=== PATIENT | female | born 1965 | race Caucasian/White ===

== ENCOUNTER 2017-05-31 09:01 | Day surgery (SDC) | payer BC ==
[~2017-05-31] VITALS: Ht 152.4 cm; Wt 64.7 kg
[2017-05-31] VITALS (8 sets, daily range): BP systolic 115–134; BP diastolic 62–83; PULSE 62–82; RESP 12–18; Ht 152.4 cm; Wt 64.7 kg
[~2017-05-31 09:01] MED LIST: EPHEDrine SULFATE 50 MG/5 ML SYG ONE; GLYCOPYRROLATE 0.4 MG INJ ONE
[2017-05-31 10:56] LABS: BASOPHILS % 0.6 % (0.0-2.0); EOSINOPHILS # 0.1 10^3/ul (0.0-0.5); EOSINOPHILS % 1.7 % (0.0-7.0); HEMATOCRIT 39.5 % (37.0-47.0); HEMOGLOBIN 13.6 g/dl (12.0-16.0); LYMPHOCYTES # 1.8 10^3/ul (0.8-2.9); LYMPHOCYTES % 34.3 % (15.0-51.0); MEAN CORPUSCULAR HEMOGLOBIN 29.5 pg (29.0-33.0); MEAN CORPUSCULAR HGB CONC 34.4 g/dl (32.0-37.0); MEAN CORPUSCULAR VOLUME 85.7 fl (82.0-101.0); MEAN PLATELET VOLUME 11.1 fl (7.4-10.4); MONOCYTE # 0.3 10^3/ul (0.3-0.9); MONOCYTES % 5.7 % (0.0-11.0); NEUTROPHILS % 57.3 % (39.0-77.0); PLATELET COUNT 193 10^3/UL (140-415); RED BLOOD COUNT 4.61 10^6/ul (4.20-5.40); RED CELL DISTRIBUTION WIDTH 12.2 % (11.5-14.5); WHITE BLOOD COUNT 5.3 10^3/ul (4.8-10.8)
[2017-05-31] MEDS ORDERED: MIDAZOLAM 1 MG/ML 2 ML INJ ONE (13:11)
[2017-05-31] MEDS ORDERED: LIDOCAINE 2% (SDV) 5 ML INJ ONE (13:28)
[2017-05-31] MEDS ORDERED: FENTAnyl 50 MCG/ML VIAL ONE (13:28)
[2017-05-31] MEDS ORDERED: PROPOFOL 20 ML ONE (13:28)
[2017-05-31] MEDS ORDERED: DEXAMETHASONE 4 MG/ML 1 ML INJ ONE (13:30)
[2017-05-31] MEDS ORDERED: ONDANSETRON 4 MG INJ ONE (13:32)
[2017-05-31] MEDS ORDERED: FAMOTIDINE 20 MG INJ ONE (13:32)
--- NOTE | 2017-05-31 14:14 | PREOPHP ---
DATE OF ADMISSION: 05/31/2017 HISTORY OF PRESENT ILLNESS: A 52-year-old female 3, para 3, is admitted due to postmenopaus al bleeding. PAST MEDICAL HISTORY: Unremarkable. PAST SURGICAL HISTORY: section x3, umbilical hernia repair and right shoulder surgery. ALLERGIES: LATEX. FAMILY HISTORY: Noncontributory. PHYSICAL EXAMINATION: VITAL SIGNS: The patient is afebrile. Vital signs stable. HEAD, NECK AND CHEST: Within normal limits. ABDOMEN: Soft, nontender, nondistended. PELVIC: Normal. EXTREMITIES: Within normal limits. NEUROLOGIC: Within normal limits. IMPRESSION: Postmenopausal bleeding. PLAN: Dilation and curettage. Risks, benefits and alternatives of the procedure were explained to the patient. The patient said she understood and gave informed consent for the procedure. Dictated By: SANJEEV ALVAREZ/YUNIOR Conf#: [id number] DID#: [id number]
--- NOTE | 2017-05-31 14:22 | SIPON ---
Date/Time of Note Date/Time of Note DATE: 05/31/17 TIME: 14:21 Operative Report Preoperative Diagnosis postmenopausal bleeding Postoperative Diagnosis Same Operation/Procedure Performed Dilation and Curettage Surgeon Sanjeev Cheng MD retail event and sales assistant None Anesthesia: general Estimated blood loss: minimal Transfusion Required none Specimen ECC and EMC Grafts/Implants none Complications none SANJEEV CHENG MD May 31, 2017 14:22
[2017-05-31] MEDS ORDERED: KETOROLAC 30 MG INJ IV PRN (14:30)
[2017-05-31] MEDS ORDERED: hydrALAzine 20 MG INJ IV PRN (14:30)
[2017-05-31] MEDS ORDERED: FENTAnyl 50 MCG/ML VIAL IV ONE (14:30)
[2017-05-31] MEDS ORDERED: EPHEDrine SULFATE 50 MG/5 ML SYG IV PRN (14:30)
[2017-05-31] MEDS ORDERED: METOCLOPRAMIDE 10 MG INJ IV PRN (14:30)
[2017-05-31] MEDS ORDERED: FENTAnyl 50 MCG/ML VIAL IV PRN ×2 (14:30)
[2017-05-31] MEDS ORDERED: ONDANSETRON 4 MG INJ IV PRN (14:30)
[2017-05-31] MEDS ORDERED: OXYCODONE/ACETAMINOPHEN (5/325) TAB PO PRN ×2 (14:30)
[2017-05-31] MEDS ORDERED: TRIMETHOBENZAMIDE 100 MG/ML VIAL IM PRN (14:30)
--- NOTE | 2017-05-31 15:54 | OPR ---
DATE OF OPERATION: 05/31/2017 PREOPERATIVE DIAGNOSIS: Postmenopausal bleeding. POSTOPERATIVE DIAGNOSIS: Postmenopausal bleeding. OPERATION PERFORMED: Dilation and curettage. SURGEON: Dr. Melgoza. ANESTHESIA: General anesthesia. PROCEDURE: The patient was taken to the operating room and placed on the operating table in supine position. After adequate general anesthesia was given, the patient was placed in dorsal lithotomy p osition. The area was prepared and draped in the usual sterile fashion. Speculum was placed inside the vagina and tenaculum was used to grasp the anterior lip of the cervix. Using Kevorkian curet, endocervical curettage was performed and specimen obtained was sent to pathology. Next, using cervi hernandez dilators, the cervical os was dilated. Using sharp curet, endometrial curettage was performed a nd specimen obtained was sent to Pathology. All the instruments were removed. Adequate hemostasis was assured. Patient tolerated the procedure well. Patient was awakened from anesthesia and transf erred to recovery in stable condition. ESTIMATED BLOOD LOSS: Minimal. COUNTS: All counts were correct. Dictated By: SANJEEV ALVAREZ/YUNIOR Conf#: [id number] DID#: [id number]
== END 2017-05-31 16:20 | disposition home or self-care (01) ==
LOC: SDS 09:01
PROVIDERS: ATTEND Obstetrics & Gynecology
DX: N95.0 Postmenopausal bleeding (principal)
CPT/HCPCS: 58120; 85025; 86850; 86900; 86901; 88305; J1100; J1885; J2250; J2405; J3010; Z7512; Z7610

== ENCOUNTER 2017-09-23 09:41 | Day surgery (SDC) | END 2017-09-23 17:39 | disposition home or self-care (01) ==

== ENCOUNTER 2018-09-09 06:19 | Day surgery (SDC) | payer BC ==
--- NOTE | 2018-09-07 17:48 | PREOPHP ---
DATE OF ADMISSION: 09/09/2018 SCHEDULE FOR OUTPATIENT SURGERY: 09/09/2018 HISTORY OF PRESENT ILLNESS: The patient is a 53-year-old female in overall good health, who underwent recent mammography screening revealing suspicious calcifications in the upper central anterior right breast. 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 She is going to undergo right breast excision of ductal carcinoma in situ with preoperative needle localization. PAST MEDICAL HISTORY: MEDICATIONS: None. ALLERGIES: NONE. OPERATIONS: section x3, right shoulder x2, umbilical hernia repair. REVIEW OF SYSTEMS: 3, para 3. Last menstrual period in 2010. PHYSICAL EXAMINATION: GENERAL: The patient is 4 feet 11 inches, 138 pounds. VITAL SIGNS: Normal. HEENT: Within normal limits. LUNGS: Clear. HEART: Regular rhythm. BREASTS: Large and ptotic. There was no mass palpable in either breast. LYMPH NODES: There was no axillary or supraclavicular lymphadenopathy. ABDOMEN: Soft. PELVIC AND RECTAL: Per primary care. EXTREMITIES: Without edema. NEUROLOGIC: Physiologic. IMPRESSION: Ductal carcinoma in situ, right breast. PLAN: Right breast excisional biopsy of ductal carcinoma in situ with preoperative needle localization. I have had a complete discussion with the patient regarding the nature of her condition, the nature of the surgery, indications, alternatives, options and risks including bleeding, infection, distortion or scarring of the breast, need for additional surgery based on final pathology, etc. All questions have been answered. She understands and agrees to proceed. Dictated By: DONIS RITCHIE/YUNIOR Conf#: [id number] DID#: [id number] MTDSeema
[2018-09-09] VITALS (15 sets, daily range): BP systolic 120–150; BP diastolic 59–82; PULSE 60–72; RESP 14–24; Ht 149.9 cm; Wt 64.6 kg
[~2018-09-09] VITALS: Ht 149.9 cm; Wt 64.6 kg
[~2018-09-09 06:19] MED LIST changes: +CEFAZOLIN 2 GM/50 ML (PMX) 50 ML IVPB ONE; -EPHEDrine SULFATE 50 MG/5 ML SYG ONE; -GLYCOPYRROLATE 0.4 MG INJ ONE; +SOD CHLORIDE 0.9% 1,000 ML IV SCH
--- NOTE | 2018-09-09 07:30 | HPN ---
Date/Time of Note Date/Time of Note DATE: 09/09/18 TIME: 07:30 Interval H&P Admission Note Pt. seen H&P reviewed: No system changes DONIS FENTON Sep 09, 2018 07:30
[2018-09-09] MEDS ORDERED: ACETAMINOPHEN 500 MG TAB PO ONE (10:00)
--- NOTE | 2018-09-09 11:54 | PREAC ---
Date/Time of Note Date/Time of Note DATE: 09/09/18 TIME: 11:53 Anesthesia Eval and Record Evaluation Time Pre-Procedure Interview DATE: 09/09/18 TIME: 11:53 Age 53 Sex female NPO: 8 hrs Preoperative diagnosis R DCIS Planned procedure R needle loc partial mastectomy Past Medical History Past Medical History: Includes Surgery & Anesthesia Issues No known issue Meds Anticoagulation: No Beta Nicole within 24 hr: No Reason Beta Nicole not given: Pt. not on B-Nicole No Active Prescriptions or Reported Meds Current Medications Sodium Chloride 1,000 ml @ 75 mls/hr [id number] IV ; Start 09/09/18 at 06:00; Stop 09/09/18 at 19:19 Meds reviewed: Yes Allergies Coded Allergies: Latex, Natural Rubber (Verified Allergy, Unknown, RASH HIVES, 05/31/17) Allergies Reviewed: Yes Labs/Studies Labs Reviewed: Reviewed by anesthesiologist test: Negative Pre-procedure Exam Airway: Adequate mouth opening, Adequate thyromental dist Mallampati: Mallampati II Teeth: Normal (missing teeth, lots of gaps in teeth) Lung: Normal Heart: Normal ASA Physical Status ASA physical status: 2 Emergency: None Planned Anesthetic General/MAC: LMA Pre-operative Attestations Prior to commencing anesthesia and surgery, the patient was re-evaluated, there was verification of: *The patient's identity *The results of appropriate recent lab work and preoperative vital signs *The above evaluation not changing prior to induction *Anesthetic plan, risk benefits, alternative and complications discussed with patient/family; questions answered; patient/family understands, accepts and wishes to proceed. Coagulant Dipper used BUSTER BONILLA Sep 09, 2018 11:54
[2018-09-09] MEDS ORDERED: OXYCODONE/ACETAMINOPHEN (5/325) TAB PO PRN ×2 (12:00)
[2018-09-09] MEDS ORDERED: morphine (1 MG/ML) 10ML SYRINGE IV PRN ×2 (12:00)
[2018-09-09] MEDS ORDERED: LABETALOL HCL 20MG INJ IV PRN (12:00)
[2018-09-09] MEDS ORDERED: FENTAnyl 50 MCG/ML VIAL IV PRN ×2 (12:00)
[2018-09-09] MEDS ORDERED: HYDROmorphONE 1 MG/5 ML IV SYRINGE IV PRN (12:00)
[2018-09-09] MEDS ORDERED: DIPHENHYDRAMINE 50 MG INJ IV PRN (12:00)
[2018-09-09] MEDS ORDERED: ONDANSETRON 4 MG INJ IV PRN (12:00)
[2018-09-09] MEDS ORDERED: MEPERIDINE 25 MG INJ IV PRN (12:00)
[2018-09-09] MEDS ORDERED: ALBUTEROL 0.083% (NEB) 2.5 MG/3 ML AMP HHN PRN (12:00)
[2018-09-09] MEDS ORDERED: FAMOTIDINE 20 MG INJ ONE (12:01)
[2018-09-09] MEDS ORDERED: FENTAnyl 50 MCG/ML VIAL ONE (12:01)
[2018-09-09] MEDS ORDERED: LIDOCAINE 2% (SDV) 5 ML INJ ONE (12:01)
[2018-09-09] MEDS ORDERED: CEFAZOLIN 1 GM INJ ONE (12:01)
[2018-09-09] MEDS ORDERED: MIDAZOLAM 1 MG/ML 2 ML INJ ONE (12:01)
[2018-09-09] MEDS ORDERED: ONDANSETRON 4 MG INJ ONE (12:01)
[2018-09-09] MEDS ORDERED: EPHEDrine SULFATE 50 MG/5 ML SYG ONE (12:14)
[2018-09-09] MEDS ORDERED: LIDOCAINE 1% (MPF) 30 ML INJ ONE (12:25)
--- NOTE | 2018-09-09 12:52 | SIPON ---
Date/Time of Note Date/Time of Note DATE: 09/09/18 TIME: 12:50 Operative Report Preoperative Diagnosis ductal carcinoma in situ right breast Postoperative Diagnosis same Operation/Procedure Performed right breast biopsy with pre-op needle localization Surgeon see signature line pharmacy affairs assistant none Anesthesia: general Estimated blood loss: minimal Transfusion Required none Specimen right breast biopsy DCIS Grafts/Implants none Complications none DONIS FENTON Sep 09, 2018 12:52
--- NOTE | 2018-09-09 12:59 | PAC ---
Date/Time of Note Date/Time of Note DATE: 09/09/18 TIME: 12:59 Post-Anesthesia Notes Post-Anesthesia Note Last documented vital signs @1254 120/57 100% [id number] face mask 6L Activity: WNL Respiratory function: WNL Cardiovascular function: WNL Mental status: Baseline Pain reasonably controlled: Yes Hydration appropriate: Yes Nausea/Vomiting absent: Yes BUSTER BONILLA Sep 09, 2018 12:59
[2018-09-09] MEDS: HYDROmorphONE 1 MG/5 ML IV SYRINGE IV PRN ×2 (13:13→13:21)
--- NOTE | 2018-09-09 15:11 | RADRPT ---
Vent Rate: 47 bpm RR Interval: 0 msec GA Interval: 178 msec QRS Duration: 78 msec QT Interval: 472 msec QTC Interval: 417 msec P-R-T [place]: 62 - 19 - 29 degrees Marked sinus bradycardia Abnormal ECG Electronically Signed By: Riki Bourne
--- NOTE | 2018-09-09 16:03 | OPR ---
DATE OF OPERATION: 09/09/2018 SURGEON: Donis Mckeon MD PHOTORESIST PRINTER: None. ANESTHESIOLOGIST: Nadine Miller CRNA TYPE OF ANESTHESIA: General. PREOPERATIVE DIAGNOSIS: Ductal carcinoma in situ, right breast. POSTOPERATIVE DIAGNOSIS: Ductal carcinoma in situ, right breast. OPERATION PERFORMED: Right breast biopsy with preoperative needle localization. DESCRIPTION OF PROCEDURE: The patient was positioned supine in the operating room with sequential co mpression device stockings in place and was prepped and draped in the usual fashion. The ductal carc inoma in situ calcifications were located in the upper central anterior right breast at 12 o'clock. A curvilinear incision was made, achieving hemostasis with cautery. The wire was brought into the fi eld. Flaps were dissected circumferentially. The appropriate sector of tissue was removed including a wide excision of the wire localization. Hemostasis was achieved with cautery. The specimen was o riented with suture marked as anterior, superior and medial and was sent for specimen radiograph and then given to pathology. After ascertaining the hemostasis was secured, the incision was closed with interrupted 3-0 Vicryl deep dermal subcutaneous sutures followed by continuous 4-0 Monocryl subcutic ular suture. Tincture of benzoin and 1/2-inch Steri-Strips were applied, followed by dry sterile nini ssing. Final sponge and needle counts were correct. The patient tolerated the procedure well and le ft the operating room in good condition. Dictated By: DONIS RITCHIE/YUNIOR Conf#: [id number] DID#: [id number]
[2018-09-10] MEDS ORDERED: INFLUENZA VIRUS VACCINE 0.5 ML (DISPENSING) IM* ONE (09:00)
== END 2018-09-09 15:20 | disposition home or self-care (01) ==
LOC: SDS 06:19
PROVIDERS: ATTEND Surgery
DX: D05.11 Intraductal carcinoma in situ of right breast (principal)
CPT/HCPCS: 19101; 71045; 88307; 93005; J0690; J1170; J2250; J2405; J3010; Z7512; Z7610; 90686